=== PATIENT | male | born 1970 | race Caucasian/White ===

== ENCOUNTER 2024-01-12 11:41 | Emergency (ER) | payer BC ==
[2024-01-12] MEDS ORDERED: Sodium Chloride 0.9% 2.5 ML Syringe FLUSH PRN (12:17)
[2024-01-12] MEDS ORDERED: Sodium Chloride 0.9% 10 ML Syringe FLUSH PRN (12:17)
[2024-01-12 12:23] LABS: HEMATOCRIT 50.3 % (42.0-52.0); HEMOGLOBIN 17.4 g/dL (14.0-18.0); MEAN CORPUSCULAR HEMOGLOBIN 29.9 pg (28.0-32.0); MEAN CORPUSCULAR HGB CONC 34.6 g/dL (32.0-36.0); MEAN CORPUSCULAR VOLUME 86.4 fL (83.0-99.0); MEAN PLATELET VOLUME 11.8 fL (9.4-12.4); PLATELET COUNT,PLT 158 K/uL (150-400); RED BLOOD CELL COUNT 5.82 M/uL (4.52-5.90); WHITE BLOOD CELL COUNT,WBC 23.72 K/uL (3.9-11.3)
[2024-01-12 12:37] LABS: A/G RATIO 0.9 (0.9-1.6); ALBUMIN 3.6 g/dL (3.4-5.0); BILIRUBIN TOTAL 1.8 mg/dL (0.2-1.0); CALCIUM 9.5 mg/dL (8.5-10.1); CARBON DIOXIDE,CO2 28.2 mmol/L (21.0-32.0); CREATININE 1.2 mg/dL (0.8-1.3); EST CRCL DRUG DOSING (CG) 69.67 mL/min; POTASSIUM,K 3.6 mmol/L (3.5-5.1); PROTEIN TOTAL,TP 7.6 g/dL (6.4-8.2)
[2024-01-12] MEDS ORDERED: Albuterol 8 GM Inhaler INH PRN (12:49)
[2024-01-12 13:00] LABS: EOSINOPHILS ABSOLUTE MAN 0.47 K/uL (0.00-0.45); EOSINOPHILS PERCENT MAN 2 % (0-6); LYMPHOCYTES ABSOLUTE MAN 0.47 K/uL (1.00-4.80); LYMPHOCYTES PERCENT MAN 2 % (24-44); MONOCYTES ABSOLUTE MAN 0.95 K/uL (0.00-0.80); MONOCYTES PERCENT MAN 4 % (0-8); SEG NEUTROPHILS ABSOLUTE MAN 21.82 K/uL (1.80-7.70); SEG NEUTROPHILS PERCENT MAN 92 % (41-71)
[2024-01-12] MEDS: Iopamidol 755 MG/ML 500 ML Multipack Bottle IVPUSH STA (13:06)
== END 2024-01-12 15:24 | disposition home or self-care (01) ==
LOC: MW.ED 11:41
DX: K29.70 Gastritis, unspecified, without bleeding (principal); K86.89 Other specified diseases of pancreas; R91.1 Solitary pulmonary nodule; I10 Essential (primary) hypertension; E78.00 Pure hypercholesterolemia, unspecified; Z91.030 Bee allergy status; Z75.8 Other problems related to medical facilities and other health care; Z79.82 Long term (current) use of aspirin; Z79.899 Other long term (current) drug therapy
CPT/HCPCS: 36415; 74177; 80053; 83690; 84484; 85025; 93005; 99284; Q9967